=== PATIENT | female | born 1980 | race Caucasian/White ===

== ENCOUNTER 2019-05-03 16:11 | Inpatient (IN) | payer OTHER ==
[2019-05-03] VITALS (7 sets, daily range): BP systolic 116–182; BP diastolic 79–104
[~2019-05-03] VITALS: Ht 172.7 cm; Wt 59.4 kg
[~2019-05-03 16:11] MED LIST: NORCO 5-325 TA1 EACH PO; ORTHOTRICYCLEN; synthroid
[2019-05-03 16:40] LABS: BE -33.1 mmol/L (-2 to +3); PCO2 VENOUS 22.7 mmHg (41.0-51.0); PO2 VENOUS 78.3 mmHg (35.0-45.0)
[2019-05-03 16:45] LABS: ABSOLUTE BASOPHILS 0.2 thou/uL (0.0-0.2); ABSOLUTE LYMPHOCYTES 1.7 thou/uL (0.8-5.3); ABSOLUTE MONOCYTES 0.9 thou/uL (0.0-1.2); ABSOLUTE NEUTROPHILS 9.5 thou/uL (1.6-8.1); BASOPHILS 1.6 %; EOSINOPHILS 0.1 %; HEMOGLOBIN 16.2 gm/dL (12.0-15.0); LYMPHOCYTES 13.7 %; MCH 34.6 pg (26.0-34.0); MCHC 31.1 g/dL (28.0-37.0); MCV 111.2 fL (80.0-100.0); MPV 9.5 fl. (7.2-11.1); NUCLEATED RBCS 0 /100WBC; PLATELET COUNT* 389 thou/uL (150-400); POLYS 77.6 %; RBC 4.68 mil/uL (4.20-5.00); RDW-CV 15.1 % (10.5-14.5); WBC 12.3 thou/uL (4.0-11.0)
[2019-05-03 17:11] LABS: INFLUENZA A ANTIGEN Negative (Negative); INFLUENZA B ANTIGEN Negative (Negative)
[2019-05-03 17:16] LABS: MACROCYTES 2+; PLATELET ESTIMATE ADEQUATE
[2019-05-03 17:17] LABS: ANISOCYTOSIS 2+
[2019-05-03 17:24] LABS: BUN 19 mg/dL (7-18); CALCIUM 7.9 mg/dL (8.5-10.1); CHLORIDE 101 mmol/L (98-107); CREATININE 0.9 mg/dL (0.6-1.3); POTASSIUM 4.1 mmol/L (3.5-5.1); SODIUM 137 mmol/L (136-145)
[2019-05-03 17:25] LABS: ALKALINE PHOSPHATASE 145 U/L (46-116); LIPASE 75 U/L (73-393); MAGNESIUM 2.5 mg/dL (1.8-2.4); PHOSPHORUS* 5.2 mg/dL (2.5-4.9); SGOT 16 U/L (15-37); SGPT 19 U/L (30-65); TOTAL BILIRUBIN 0.3 mg/dL (<0.1-1.0); TOTAL PROTEIN 8.7 g/dL (6.4-8.2)
[2019-05-03 17:27] LABS: ANION GAP 31 mmol/L (7-16)
[2019-05-03 17:29] LABS: CO2 < 5 mmol/L (21-32)
[2019-05-03 17:29] LABS: URINE BILIRUBIN NEGATIVE (Negative); URINE BLOOD TRACE (Negative); URINE COLOR YELLOW; URINE GLUCOSE-RANDOM 2+ (Negative); URINE KETONES 2+ (Negative); URINE LEUKOCYTES-REFLEX NEGATIVE (Negative); URINE NITRITE-REFLEX NEGATIVE (Negative); URINE PROTEIN 2+ (Negative); URINE SPECIFIC GRAVITY >= 1.030 (1.005-1.030); URINE UROBILINOGEN 0.2 E.U./dl (0.2-1.0)
[2019-05-03 17:30] LABS: URINE CLARITY HAZY
[2019-05-03 17:30] LABS: GLUCOSE 605 mg/dL (70-99)
[2019-05-03 17:36] LABS: SQUAMOUS >10 Many /LPF (0-3); URINE RBC 0-2 Rare /HPF (0-2); URINE WBC-REFLEX 0-5 Rare /HPF (0-5)
[2019-05-03 17:37] LABS: BACTERIA-REFLEX >30 Many /HPF (None Seen); CASTS None Seen /LPF (None Seen); CRYSTALS None Seen /LPF (None Seen); MUCUS 0-3 Light strn/LPF (None Seen)
[2019-05-03 22:00] LABS: CALCIUM 6.8 mg/dL (8.5-10.1); CREATININE 0.8 mg/dL (0.6-1.3); POTASSIUM 3.6 mmol/L (3.5-5.1)
[2019-05-04] VITALS (18 sets, daily range): BP systolic 103–118; BP diastolic 66–79
[2019-05-04 03:38] LABS: ABSOLUTE LYMPHOCYTES 0.7 thou/uL (0.8-5.3); ABSOLUTE MONOCYTES 1.1 thou/uL (0.0-1.2); ABSOLUTE NEUTROPHILS 8.3 thou/uL (1.6-8.1); BASOPHILS 0.2 %; HEMATOCRIT 36.6 % (37.0-47.0); LYMPHOCYTES 6.7 %; MCH 34.2 pg (26.0-34.0); MCHC 34.7 g/dL (28.0-37.0); MONOCYTES 10.8 %; MPV 8.2 fl. (7.2-11.1); NUCLEATED RBCS 0 /100WBC; POLYS 82.3 %; RBC 3.72 mil/uL (4.20-5.00); RDW-CV 13.7 % (10.5-14.5); WBC 10.1 thou/uL (4.0-11.0)
[2019-05-04 03:44] LABS: HEMOGLOBIN 12.7 gm/dL (12.0-15.0); MCV 98.5 fL (80.0-100.0); PLATELET COUNT* 209 thou/uL (150-400)
[2019-05-04 03:49] LABS: CALCIUM 7.1 mg/dL (8.5-10.1); CREATININE 0.6 mg/dL (0.6-1.3)
--- NOTE | 2019-05-04 05:40 | NUR ---
PT. PROGRESSING TOWARDS GOALS. SINUS RHYTHM TRACING ON RIGGER APPRENTICE AT THIS TIME. INSULIN GTT REMAINS INFUSING. CHEN CATHETER PLACED LAST NIGHT DUE TO FREQUENT URINATION AND TACHYPNEA. IVF INFUSING PER DKA PROTOCOL. ROOM AIR. STAYED IN ROOM WITH PT. THROUGHOUT NIGHT, INSTRUCTED ON VISITING HOURS BUT PT. GOT VERY ANXIOUS AND TEARFUL WHEN TOLD CANNOT STAY IN ROOM. NEXT LAB DRAWS SCHEDULED FOR 1000. POTASSIUM REPLACING. WILL CONTINUE TO MONITOR.
[2019-05-04 11:24] LABS: HEMATOCRIT 38.4 % (37.0-47.0); HEMOGLOBIN 13.2 gm/dL (12.0-15.0); MCH 33.6 pg (26.0-34.0); MCHC 34.4 g/dL (28.0-37.0); MCV 97.7 fL (80.0-100.0); MPV 8.5 fl. (7.2-11.1); RBC 3.93 mil/uL (4.20-5.00); RDW-CV 14.1 % (10.5-14.5); WBC 9.6 thou/uL (4.0-11.0)
[2019-05-04 11:30] LABS: CALCIUM 7.9 mg/dL (8.5-10.1); CREATININE 0.4 mg/dL (0.6-1.3); POTASSIUM 3.4 mmol/L (3.5-5.1)
[2019-05-04 16:18] LABS: CALCIUM 7.2 mg/dL (8.5-10.1); CREATININE 0.5 mg/dL (0.6-1.3); POTASSIUM 3.1 mmol/L (3.5-5.1)
[2019-05-04 22:19] LABS: CALCIUM 7.5 mg/dL (8.5-10.1); CREATININE 0.5 mg/dL (0.6-1.3); POTASSIUM 3.2 mmol/L (3.5-5.1)
[2019-05-05] VITALS: BP 95/61
[2019-05-05 02:00] VITALS: BP 100/64
[2019-05-05 04:00] VITALS: BP 111/83
[2019-05-05 04:23] LABS: ABSOLUTE BASOPHILS 0.1 thou/uL (0.0-0.2); ABSOLUTE EOSINOPHILS 0.1 thou/uL (0.0-0.7); ABSOLUTE LYMPHOCYTES 1.7 thou/uL (0.8-5.3); ABSOLUTE MONOCYTES 0.5 thou/uL (0.0-1.2); ABSOLUTE NEUTROPHILS 4.9 thou/uL (1.6-8.1); BASOPHILS 1.2 %; HEMATOCRIT 38.5 % (37.0-47.0); HEMOGLOBIN 13.5 gm/dL (12.0-15.0); LYMPHOCYTES 22.9 %; MCH 34.5 pg (26.0-34.0); MCHC 34.9 g/dL (28.0-37.0); MCV 98.6 fL (80.0-100.0); MONOCYTES 7.4 %; MPV 8.8 fl. (7.2-11.1); NUCLEATED RBCS 0 /100WBC; PLATELET COUNT* 213 thou/uL (150-400); POLYS 67.5 %; RBC 3.91 mil/uL (4.20-5.00); RDW-CV 14.2 % (10.5-14.5); WBC 7.3 thou/uL (4.0-11.0)
[2019-05-05 04:45] LABS: CALCIUM 7.7 mg/dL (8.5-10.1); CREATININE 0.4 mg/dL (0.6-1.3); POTASSIUM 4.1 mmol/L (3.5-5.1)
--- NOTE | 2019-05-05 04:57 | NUR ---
VITALS STABLE, AFEBRILE. PT SLEPT THROUGH THE NIGHT. ELECTROLYTES/GAP STABLILIZED. PT HAD AN UNEVENTFUL NIGHT. NO UOP, BM. ABLE TO TURN SELF IN BED. CALL LIGHT WITHIN REACH. WILL CONTINUE MONITORING.
[2019-05-05 06:00] VITALS: BP 91/59
[2019-05-05 08:00] VITALS: BP 98/66
[2019-05-05] MEDS ORDERED: HUMALOG100 UNIT/1 SUBQ (08:29)
[2019-05-05] MEDS ORDERED: LANTUS SUBQ (08:29)
[2019-05-05 09:39] VITALS: BP 91/59
--- NOTE | 2019-05-05 10:00 | NUR ---
CM ASSESSMENT: PT LIVES AT HOME WITH HER AND CHILDREN. PT BROUGHT IN TO THE ED WITH DKA OVER THE WEEKEND. PT DID NOT KNOW SHE HAD DIABETES. PT HAS A GLUCOMETER THAT IS FUNCTIONING AND KNOW HOW TO USE IT. RX CALLED IN FOR STRIPS,NEEDLES AND INSULIN TO [facility] IN [place] PER PTS REQUEST. RX COVERED BY INSURANCE
--- NOTE | 2019-05-05 10:14 | NUR ---
SPOKE WITH DR HURTADO AND PHARMACY, INSULIN ORDERS CHANGED AND CALLED TO PHARMACY. LANTUS NOT COVERED BY PATIENT INSURANCE. WILL USE BASAGLAR PENS. ALL QUESTIONS ANSWERED BY PHARMACY. WILL EDUCATE PATIENT WITH DISCHARGE INSTRUCTIONS.
[2019-05-05] MEDS ORDERED: BASAGLAR K100 UNIT/1 SUBQ (10:47)
--- NOTE | 2019-05-05 10:54 | NUR ---
PATIENT WOULD LIKE TO CHANGE MEDICATIONS TO A DIFFERENT PHARAMCY. JENNA CASE MANAGMENT WORKING ON THAT NOW. PAPERWORK UPDATED TO REFLECT CHANGES.
--- NOTE | 2019-05-05 11:29 | NUR ---
PATIENT DC TO HOME WITH . ALL QUESTIONS ANSWERED. ALL PRESCRIPTS CALLED INTO PHARMACY. ALL DC PAPERWORK AND CARE NOTES GIVEN TO PATIENT. PATIENT EDUCATED ON KEEPING A LOG FOR SUGARS 4-5 TIMES A DAY AND A LOG OF FOOD AND FOLLOW UP WITH PCP IN 10-14 DAYS. TAKEN BY MARTINE TO [place] WITH . ALL BELONGINGS SENT WITH PATIENT.
[2019-05-06 02:15] LABS: GLYCOHEMOGLOBIN (HGB A1C) 12.4 % (4.8-5.6)
--- NOTE | 2019-05-07 13:56 | EKG ---
[place] [address] ELECTROCARDIOGRAM REPORT Name: CAYDENAKIN Esparza Room: [address] [place] .R#: [id number] Admission: 05/03/19 Attend Phys: Ranjit Brewer, Discharge: 05/05/19 Date of : 84 Date of Service: 05/03/19 1648 Report #: [id number] THIS REPORT FOR: cc: Keyur Burris Bradley L. DO Holkins, John M. MD [facility] ~ THIS REPORT FOR: //name// [facility] ED Test Date: 2019-05-03 Test Time: 16:48:23 Pat Name: AKIN ELIZABETHEL Department: Room: 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 05/05/19 1557 1648 [id number] Navi Wyatt MD, [facility] /EPI
== END 2019-05-05 11:17 | disposition home or self-care (01) | DRG 639 ==
LOC: M.ERS 16:11 → M.TBA-ER 17:37 → M.ICU 17:37
PROVIDERS: Emergency Medicine Emergency Medical Services; ADMIT Internal Medicine
DX: E11.10 Type 2 diabetes mellitus with ketoacidosis without coma (principal); E89.0 Postprocedural hypothyroidism; E86.0 Dehydration; Z85.850 Personal history of malignant neoplasm of thyroid; Z88.0 Allergy status to penicillin; Z82.49 Family history of ischemic heart disease and other diseases of the circulatory system; Z83.3 Family history of diabetes mellitus; Z23 Encounter for immunization